=== PATIENT | female | born 1995 | race Two or more races ===

== ENCOUNTER 2018-01-29 19:46 | Emergency (ER) | payer MEDICAID ==
[~2018-01-29] VITALS: Ht 157.5 cm; Wt 85.9 kg
[~2018-01-29 19:46] MED LIST: GABA300C10 PO; PRED5TAB27 PO
[2018-01-29 19:53] VITALS: BP 119/77
[2018-01-29 21:32] LABS: HCG UR SG 1.009 (1.003-1.030)
== END 2018-01-29 22:24 | disposition home or self-care (01) ==
LOC: ED 21:00
DX: S16.1XXA Strain of muscle, fascia and tendon at neck level, initial encounter (principal); G43.909 Migraine, unspecified, not intractable, without status migrainosus; X58.XXXA Exposure to other specified factors, initial encounter; Y93.89 Activity, other specified; Y92.89 Other specified places as the place of occurrence of the external cause; Y99.8 Other external cause status
CPT/HCPCS: 81025; 99283

== ENCOUNTER 2018-02-03 16:06 | Emergency (ER) | payer MEDICAID ==
[~2018-02-03] VITALS: Ht 160 cm; Wt 81.1 kg
[2018-02-03 16:46] LABS: BASOPHILS # (AUTO) 0.02 x10^3/uL (0-0.1); BASOPHILS % (AUTO) 0 % (0-1); EOSINOPHILS # (AUTO) 0.03 x10^3/uL (0-0.4); EOSINOPHILS % (AUTO) 0 % (1-7); LYMPHOCYTES # (AUTO) 1.91 x10^3/uL (1-3.4); LYMPHOCYTES % (AUTO) 24 % (22-44); MD NO; MEAN CORPUSCULAR HEMOGLOBIN 31.4 pg (27.0-34.8); MEAN CORPUSCULAR HGB CONC 34.7 g/dL (32.4-35.8); MEAN CORPUSCULAR VOLUME 90.6 fL (80-100); MEAN PLATELET VOLUME 8.3 fL (7.4-10.4); MONOCYTES # (AUTO) 0.54 x10^3/uL (0.2-0.8); MONOCYTES % (AUTO) 7 % (2-9); NEUTROPHILS # (AUTO) 5.62 x10^3/uL (1.8-6.8); NEUTROPHILS % (AUTO) 69 % (42-75); PLATELET COUNT 292 x10^3/uL (130-400); RED CELL DISTRIBUTION WIDTH 13.5 % (9.6-15.2)
[2018-02-03 16:56] LABS: CULTURE INDICATED? YES; MICROSCOPIC INDICATED
[2018-02-03 17:00] LABS: ALANINE AMINOTRANSFERASE 29 U/L (12-78); ALBUMIN 4.4 g/dL (3.4-5.0); ANION GAP 10 mmol/L (5-15); CALCIUM 9.9 mg/dL (8.5-10.1); CHLORIDE 106 mmol/L (98-107); CREATININE 0.88 mg/dL (0.55-1.02)
[2018-02-03 17:04] LABS: ALKALINE PHOSPHATASE 66 U/L (45-117); BILIRUBIN,TOTAL 0.5 mg/dL (0.2-1.0); TOTAL PROTEIN 9.1 g/dL (6.4-8.2)
[2018-02-03 18:43] VITALS: BP 121/68
[2018-02-03 19:07] LABS: TROPONIN I < 0.015 ng/mL (0.000-0.045)
[2018-02-03] MEDS ORDERED: SODIUM CHLORIDE FLUSH 10ML SYR IVF ONE (20:00)
[2018-02-03] MEDS ORDERED: OMNIPAQUE 350 MG/ML, 100ML BOTTLE ONE (20:16)
== END 2018-02-03 21:16 | disposition home or self-care (01) ==
LOC: ED 21:10
DX: R10.12 Left upper quadrant pain (principal); R09.1 Pleurisy; R07.2 Precordial pain
CPT/HCPCS: 36415; 71045; 71275; 76700; 80053; 81001; 83690; 84484; 84703; 85025; 85379; 87086; 93005; 99285; Q9967

== ENCOUNTER → 2018-02-21 | Outpatient (CLI) | payer MEDICAID | END | disposition home or self-care (01) | LOC: RAD 16:30 | PROVIDERS: ATTEND Registered Nurse General Practice | DX: M23.51 Chronic instability of knee, right knee (principal); M25.561 Pain in right knee ==

== ENCOUNTER 2018-05-28 18:40 | Emergency (ER) | payer MEDICAID ==
[~2018-05-28] VITALS: Ht 160 cm; Wt 92.5 kg
[2018-05-28 19:46] LABS: BASOPHILS # (AUTO) 0.04 x10^3/uL (0-0.1); BASOPHILS % (AUTO) 1 % (0-1); EOSINOPHILS # (AUTO) 0.11 x10^3/uL (0-0.4); EOSINOPHILS % (AUTO) 2 % (1-7); LYMPHOCYTES # (AUTO) 2.31 x10^3/uL (1-3.4); LYMPHOCYTES % (AUTO) 35 % (22-44); MD NO; MEAN CORPUSCULAR HEMOGLOBIN 31.6 pg (27.0-34.8); MEAN CORPUSCULAR HGB CONC 34.8 g/dL (32.4-35.8); MEAN CORPUSCULAR VOLUME 90.7 fL (80-100); MEAN PLATELET VOLUME 7.6 fL (7.4-10.4); MONOCYTES # (AUTO) 0.54 x10^3/uL (0.2-0.8); MONOCYTES % (AUTO) 8 % (2-9); NEUTROPHILS # (AUTO) 3.69 x10^3/uL (1.8-6.8); NEUTROPHILS % (AUTO) 55 % (42-75); PLATELET COUNT 268 x10^3/uL (130-400); RED CELL DISTRIBUTION WIDTH 12.6 % (9.6-15.2)
[2018-05-28 19:54] VITALS: BP 106/61
[2018-05-28 19:56] LABS: ALBUMIN 3.6 g/dL (3.4-5.0); ANION GAP 7 mmol/L (5-15); CALCIUM 8.3 mg/dL (8.5-10.1); CHLORIDE 108 mmol/L (98-107)
[2018-05-28 20:15] LABS: MICROSCOPIC INDICATED
[2018-05-28 20:20] LABS: CULTURE INDICATED? YES
== END 2018-05-28 20:59 | disposition home or self-care (01) ==
LOC: ED 20:12
DX: N30.00 Acute cystitis without hematuria (principal); G43.909 Migraine, unspecified, not intractable, without status migrainosus; Z88.6 Allergy status to analgesic agent
CPT/HCPCS: 36415; 71046; 80048; 81001; 82040; 85025; 87086; 93005; 99285

== ENCOUNTER 2020-02-22 20:30 | Emergency (ER) | payer BC, MEDICAID ==
[~2020-02-22] VITALS: Ht 160 cm; Wt 96.1 kg
[~2020-02-22 20:30] MED LIST changes: +NORE1TAB85 PO; +[UNRECOGNIZED DRUG - REMARK] PO
[2020-02-22] MEDS ORDERED: ADENOSINE 6 MG/2 ML ONE (20:42)
[2020-02-22 20:56] LABS: BASOPHILS # (AUTO) 0.05 x10^3/uL (0-0.1); BASOPHILS % (AUTO) 1 % (0-1); EOSINOPHILS # (AUTO) 0.28 x10^3/uL (0-0.4); EOSINOPHILS % (AUTO) 3 % (1-7); LYMPHOCYTES # (AUTO) 4.18 x10^3/uL (1-3.4); LYMPHOCYTES % (AUTO) 37 % (22-44); MD NO; MEAN CORPUSCULAR HEMOGLOBIN 30.6 pg (27.0-34.8); MEAN CORPUSCULAR HGB CONC 34.1 g/dL (32.4-35.8); MEAN CORPUSCULAR VOLUME 89.8 fL (80-100); MEAN PLATELET VOLUME 7.9 fL (7.4-10.4); MONOCYTES # (AUTO) 0.79 x10^3/uL (0.2-0.8); MONOCYTES % (AUTO) 7 % (2-9); NEUTROPHILS % (AUTO) 53 % (42-75); PLATELET COUNT 346 x10^3/uL (130-400); RED BLOOD COUNT 4.78 x10^6/uL (3.82-5.3); RED CELL DISTRIBUTION WIDTH 13.9 % (9.6-15.2)
--- NOTE | 2020-02-22 20:59 | NUR ---
PT PRESENTS TO ER IN SVT RATE OF 233. PT IN GOWN AND IV ACCESS OBTAINED. 6MG ADENOSINE ADMIN WITH CONVERSION TO SINUS TACH. PT STATES RELIEF OF SYMPTOMS.
[2020-02-22] MEDS ORDERED: ADENOSINE 6 MG/2 ML IVPush ONE (21:00)
[2020-02-22 21:09] LABS: ANION GAP 9 mmol/L (5-15); CALCIUM 9.5 mg/dL (8.5-10.1); CHLORIDE 107 mmol/L (98-107); CREATININE 0.85 mg/dL (0.55-1.02)
[2020-02-22] MEDS ORDERED: POTASSIUM CHLORIDE 20 MEQ TAB.ER.PRT PO ONE (21:30)
[2020-02-22] MEDS ORDERED: ONDANSETRON 2MG/ML, 2ML ONE (21:37)
--- NOTE | 2020-02-22 21:42 | NUR ---
CARE ASSUMED OF PT. PT SINUS TACHY ON MONITOR. VSS. PT C/O NAUSEA. DISCUSSED WITH DR SANDS AND ORDER FOR CARLY RECEIVED. PT MEDICATED PER OCT.
[2020-02-22] MEDS ORDERED: ONDANSETRON 2MG/ML, 2ML IVPush ONE (22:00)
--- NOTE | 2020-02-22 22:25 | NUR ---
PT UP TO BR WITH STEADY GAIT. PT STATES SHE IS FEELING WELL AT THIS TIME. REMAINS SINUS TACHY ON MONITOR. CLARIFIED K+ ORDER WITH PROVIDER. 80MEQ IS TO BE ADMINISTERED. PT MEDICATED PER OCT. OK TO D/C HOME PER JUAN BOTELLO.
[2020-02-22] MEDS ORDERED: POTASSIUM CHLORIDE 20 MEQ TAB.ER.PRT ONE (22:27)
[2020-02-22 22:36] VITALS: BP 122/76
== END 2020-02-22 22:39 | disposition home or self-care (01) ==
LOC: ED 22:12
DX: I47.1 Supraventricular tachycardia (principal); R07.89 Other chest pain; J45.909 Unspecified asthma, uncomplicated
CPT/HCPCS: 36415; 80048; 82040; 83735; 84439; 84443; 84703; 85025; 93005; 96374; 99284; J0153; J2405; 96375

== ENCOUNTER 2020-09-18 16:53 | Emergency (ER) | payer BC, OTHER, MEDICAID ==
[~2020-09-18] VITALS: Ht 160 cm; Wt 96.0 kg
--- NOTE | 2020-09-18 17:42 | NUR ---
PT STATES THAT SHE HAS BEEN HAVING PALPATIONS OFF AND ON FOR A FEW WEEKS. HOOKED HER UP TO TELE AND GAVE CALL LIGHT TOLD HER TO NOTE THE TIME IF SHE HAS THE SENSATION AGAIN.
[2020-09-18 17:48] VITALS: BP 112/70
[2020-09-18 17:52] LABS: BASOPHILS % (AUTO) 0 % (0-1); EOSINOPHILS % (AUTO) 2 % (1-7); LYMPHOCYTES % (AUTO) 28 % (22-44); MEAN CORPUSCULAR HEMOGLOBIN 31.4 pg (27.0-34.8); MEAN CORPUSCULAR HGB CONC 34.9 g/dL (32.4-35.8); MEAN PLATELET VOLUME 7.2 fL (7.4-10.4); MONOCYTES % (AUTO) 8 % (2-9); NEUTROPHILS % (AUTO) 62 % (42-75); PLATELET COUNT 219 x10^3/uL (130-400); RED BLOOD COUNT 3.58 x10^6/uL (3.82-5.3); RED CELL DISTRIBUTION WIDTH 14.3 % (9.6-15.2)
[2020-09-18 17:53] LABS: MD NO
[2020-09-18 18:05] LABS: ALBUMIN 2.9 g/dL (3.4-5.0); ANION GAP 9 mmol/L (5-15); CALCIUM 8.6 mg/dL (8.5-10.1); CHLORIDE 108 mmol/L (98-107); CREATININE 0.44 mg/dL (0.55-1.02)
[2020-09-18 18:08] LABS: TROPONIN I < 0.015 ng/mL (0.000-0.045)
== END 2020-09-18 18:41 | disposition home or self-care (01) ==
LOC: ED 18:39
DX: O26.892 Other specified pregnancy related conditions, second trimester (principal); R00.2 Palpitations; R07.89 Other chest pain; G43.909 Migraine, unspecified, not intractable, without status migrainosus; Z3A.16 16 weeks gestation of pregnancy
CPT/HCPCS: 36415; 71045; 80048; 82040; 84484; 85025; 93005; 99285

== ENCOUNTER 2020-12-31 18:36 | Outpatient (CLI) | payer BC, MEDICAID ==
[~2020-12-31] VITALS: Ht 160 cm; Wt 98.6 kg
[2020-12-31] MEDS ORDERED: LORA10TA75 PO (19:02)
[2020-12-31] MEDS ORDERED: PREN1TAB10 PO (19:03)
== END 2020-12-31 19:30 | disposition home or self-care (01) ==
LOC: LDOP 18:36
PROVIDERS: ATTEND Student in an Organized Health Care Education/Training Program
DX: O26.893 Other specified pregnancy related conditions, third trimester (principal); R00.2 Palpitations; Z3A.31 31 weeks gestation of pregnancy
CPT/HCPCS: 59025

== ENCOUNTER 2020-12-31 19:47 | Emergency (ER) | payer BC, MEDICAID ==
[~2020-12-31] VITALS: Ht 160 cm; Wt 100.0 kg
[~2020-12-31 19:47] MED LIST changes: +LORA10TA75 PO; +PREN1TAB10 PO
--- NOTE | 2020-12-31 20:25 | NUR ---
PT SENT TO ED FROM L&D. PT IS 29 WEEKS AND HAS BEEN EXPERIENCNG HEART PALPITATIONS X3 DAYS. PT STATED THAT SHE HAS A HISTORY OF SVT AND IS SUPPOSED TO GET AN ABLATION AFTER DELIVERY. PT STATED THAT IT IS INTERMITTENT AND FEELS SOME CHEST TIGHTNESS WHEN SHE HAS PALPITATIONS. PT DENIES ANY SOB. PT STATED THAT FETUS WAS MONITORED ON L&D AND EVERYTHING LOOKS GOOD.
--- NOTE | 2020-12-31 20:52 | NUR ---
report recieved from sherlyn howe
[2020-12-31 22:00] LABS: BASOPHILS % (AUTO) 0 % (0-1); EOSINOPHILS % (AUTO) 2 % (1-7); LYMPHOCYTES % (AUTO) 26 % (22-44); MEAN CORPUSCULAR HEMOGLOBIN 32.2 pg (27.0-34.8); MEAN CORPUSCULAR HGB CONC 35.2 g/dL (32.4-35.8); MEAN PLATELET VOLUME 7.6 fL (7.4-10.4); MONOCYTES % (AUTO) 9 % (2-9); NEUTROPHILS % (AUTO) 62 % (42-75); PLATELET COUNT 192 x10^3/uL (130-400); RED BLOOD COUNT 3.54 x10^6/uL (3.82-5.3); RED CELL DISTRIBUTION WIDTH 15.2 % (9.6-15.2)
[2020-12-31 22:07] LABS: MD NO
[2020-12-31 22:14] LABS: ALBUMIN 2.6 g/dL (3.4-5.0); ANION GAP 8 mmol/L (5-15); CALCIUM 8.9 mg/dL (8.5-10.1); CHLORIDE 110 mmol/L (98-107); CREATININE 0.43 mg/dL (0.55-1.02)
[2020-12-31 22:24] LABS: FREE T4 (FREE THYROXINE) 0.82 ng/dL (0.76-1.46)
[2020-12-31] MEDS ORDERED: POTASSIUM CHLORIDE 20 MEQ PACKET PO ONE (23:00)
[2020-12-31] MEDS ORDERED: POTASSIUM CHLORIDE 20 MEQ TAB.ER.PRT ONE (23:04)
--- NOTE | 2020-12-31 23:26 | NUR ---
RECEIVED REPORT FROM ELLIE KNOTT TO ASSUME CARE OF PT. AT THIS TIME. PT. CHART UP FOR RECHECK BY ERP AT THIS TIME.
[2020-12-31 23:44] VITALS: BP 143/62
== END 2020-12-31 23:45 | disposition home or self-care (01) ==
LOC: ED 21:07
DX: O26.892 Other specified pregnancy related conditions, second trimester (principal); R00.2 Palpitations; R00.0 Tachycardia, unspecified; J45.909 Unspecified asthma, uncomplicated; G43.909 Migraine, unspecified, not intractable, without status migrainosus; Z3A.20 20 weeks gestation of pregnancy
CPT/HCPCS: 36415; 80048; 82040; 84439; 84443; 85025; 93005; 99284

== ENCOUNTER 2021-02-05 16:17 | Outpatient (CLI) | payer BC, MEDICAID ==
[~2021-02-05] VITALS: Ht 160 cm; Wt 103.2 kg
[2021-02-05 16:42] VITALS: BP 121/68
== END 2021-02-05 17:45 | disposition home or self-care (01) ==
LOC: LDOP 16:17
PROVIDERS: ATTEND Student in an Organized Health Care Education/Training Program
DX: O36.8130 Decreased fetal movements, third trimester, not applicable or unspecified (principal); Z3A.36 36 weeks gestation of pregnancy
CPT/HCPCS: 59025; 89060; Q0114

== ENCOUNTER 2021-02-16 12:12 | Outpatient (CLI) | payer BC, MEDICAID ==
[~2021-02-16] VITALS: Ht 160 cm; Wt 103.8 kg
[2021-02-16 12:30] VITALS: BP 110/65
== END 2021-02-16 15:29 | disposition home or self-care (01) ==
LOC: LDOP 12:12
PROVIDERS: ATTEND Student in an Organized Health Care Education/Training Program
DX: O26.893 Other specified pregnancy related conditions, third trimester (principal); R10.9 Unspecified abdominal pain; Z3A.37 37 weeks gestation of pregnancy
CPT/HCPCS: 59025

== ENCOUNTER 2021-02-23 20:41 | Outpatient (CLI) | payer BC, MEDICAID ==
[~2021-02-23] VITALS: Ht 160 cm; Wt 101.0 kg
== END 2021-02-23 21:22 | disposition home or self-care (01) ==
LOC: LDOP 20:41
PROVIDERS: ATTEND Student in an Organized Health Care Education/Training Program
DX: O62.9 Abnormality of forces of labor, unspecified (principal); O26.893 Other specified pregnancy related conditions, third trimester; Z3A.38 38 weeks gestation of pregnancy
CPT/HCPCS: 59025

== ENCOUNTER 2021-02-25 09:45 | Inpatient (IN) | payer BC, MEDICAID ==
[~2021-02-25] VITALS: Ht 160 cm; Wt 102.7 kg
[2021-02-25] MEDS ORDERED: TERBUTALINE 1 MG/ML, 1ML SQ PRN (10:30)
[2021-02-25] MEDS ORDERED: TERBUTALINE 1 MG/ML, 1ML IVPush PRN (10:30)
[2021-02-25] MEDS ORDERED: PLEASE ENTER HEIGHT AND WEIGHT MC SCH (10:30)
[2021-02-25] MEDS ORDERED: OXYTOCIN 30U/ 0.9% NaCL 500ML 500 ML IV ONE (10:30)
[2021-02-25] MEDS ORDERED: PENICILLIN GK 5,000,000 UNITS in DEXTROSE 5% 100 ML IVPB ONE (10:30)
[2021-02-25 10:44] LABS: BASOPHILS % (AUTO) 0 % (0-1); EOSINOPHILS % (AUTO) 2 % (1-7); LYMPHOCYTES % (AUTO) 23 % (22-44); MEAN CORPUSCULAR HEMOGLOBIN 31.6 pg (27.0-34.8); MEAN CORPUSCULAR HGB CONC 34.2 g/dL (32.4-35.8); MEAN PLATELET VOLUME 8.1 fL (7.4-10.4); MONOCYTES % (AUTO) 8 % (2-9); NEUTROPHILS % (AUTO) 67 % (42-75); PLATELET COUNT 183 x10^3/uL (130-400); RED BLOOD COUNT 3.67 x10^6/uL (3.82-5.3); RED CELL DISTRIBUTION WIDTH 15.7 % (9.6-15.2)
[2021-02-25] MEDS ORDERED: LIDOCAINE 1%, 20ML ONE (11:03)
[2021-02-25] MEDS ORDERED: MISOPROSTOL 200 MCG TABLET ONE (11:03)
[2021-02-25] MEDS ORDERED: NEWBORN KIT ONE (11:03)
[2021-02-25] MEDS ORDERED: OXYTOCIN 30U/ 0.9% NaCL 500ML 500 ML ONE (11:03)
[2021-02-25] MEDS ORDERED: FENTANYL/BUPIV./NS/PF 250 ML EPIDCONT ONE (14:45)
[2021-02-25] MEDS: PENICILLIN GK 2,500,000 UNITS in DEXTROSE 5% 100 ML IVPB SCH ×2 (15:11→18:54)
[2021-02-25] MEDS ORDERED: NALOXONE 0.4 MG/ML, 1ML IVPush PRN (15:30)
[2021-02-25] MEDS ORDERED: LACTATED RINGERS 1,000 ML IV SCH (15:30)
[2021-02-25] MEDS ORDERED: FENTANYL/BUPIV./NS/PF 250 ML EPIDCONT SCH (15:30)
[2021-02-25] MEDS ORDERED: EPHEDRINE 50 MG/ML, 1ML IVPush PRN (15:30)
[2021-02-25] MEDS ORDERED: LACTATED RINGERS 1,000 ML IVBOLUS PRN (15:30)
[2021-02-25] MEDS ORDERED: BISACODYL 10 MG SUPP PR PRN (22:00)
[2021-02-25] MEDS ORDERED: CALCIUM CARBONATE 500 MG TAB.CHEW PO PRN (22:00)
[2021-02-25] MEDS: OXYTOCIN 30U/ 0.9% NaCL 500ML 500 ML IV SCH (22:00)
[2021-02-25] MEDS ORDERED: GLYCERIN ADULT SUPP PR PRN (22:00)
[2021-02-25] MEDS ORDERED: ONDANSETRON 2MG/ML, 2ML IV PRN (22:00)
[2021-02-25] MEDS ORDERED: CARBOPROST TROMETHAMINE 250 MCG/ML, 1ML IM PRN (22:00)
[2021-02-25] MEDS ORDERED: SIMETHICONE 80 MG CHEW TAB PO PRN (22:00)
[2021-02-25] MEDS ORDERED: MISOPROSTOL 200 MCG TABLET PR PRN (22:00)
[2021-02-25] MEDS ORDERED: METHYLERGONOVINE 0.2 MG/ML IM PRN (22:00)
[2021-02-26 00:50] VITALS: BP 118/75
[2021-02-26] MEDS: OXYcodone/APAP 5/325MG TABLET PO PRN ×4 (01:44→21:51)
[2021-02-26] MEDS: IBUPROFEN 600 MG TABLET PO PRN ×3 (01:44→21:51)
[2021-02-26 04:30] VITALS: BP 102/64
[2021-02-26 05:32] LABS: BASOPHILS % (AUTO) 0 % (0-1); EOSINOPHILS % (AUTO) 1 % (1-7); LYMPHOCYTES % (AUTO) 16 % (22-44); MEAN CORPUSCULAR HEMOGLOBIN 32.3 pg (27.0-34.8); MEAN PLATELET VOLUME 7.8 fL (7.4-10.4); MONOCYTES % (AUTO) 7 % (2-9); NEUTROPHILS % (AUTO) 76 % (42-75); PLATELET COUNT 180 x10^3/uL (130-400); RED BLOOD COUNT 3.59 x10^6/uL (3.82-5.3); RED CELL DISTRIBUTION WIDTH 15.7 % (9.6-15.2)
[2021-02-26 08:00] VITALS: BP 111/70
[2021-02-26] MEDS: OXYTOCIN 30U/ 0.9% NaCL 500ML 500 ML IV SCH ×2 (08:00→18:00)
[2021-02-26] MEDS: PRENATAL VIT/IRON/FA 1 EACH TABLET PO SCH (08:16)
[2021-02-26] MEDS: DOCUSATE 100 MG CAPSULE PO PRN ×2 (08:16→21:51)
[2021-02-26] MEDS ORDERED: MEASLES,MUMPS&RUBELLA VACC/PF 0.5 ML SQ-VACC ONE ×2 (11:47→12:00)
[2021-02-26] MEDS: PLEASE ENTER HEIGHT AND WEIGHT MC SCH ×8 (12:00→19:00)
[2021-02-26] MEDS ORDERED: PLEASE ENTER HEIGHT AND WEIGHT MC SCH (12:00)
[2021-02-26 12:30] VITALS: BP 120/80
[2021-02-26 16:00] VITALS: BP 119/79
[2021-02-26 20:10] VITALS: BP 113/78
[2021-02-27] MEDS: OXYTOCIN 30U/ 0.9% NaCL 500ML 500 ML IV SCH (04:00)
[2021-02-27] MEDS: OXYcodone/APAP 5/325MG TABLET PO PRN (06:32)
[2021-02-27] MEDS: IBUPROFEN 600 MG TABLET PO PRN (06:32)
[2021-02-27 07:30] VITALS: BP 117/75
[2021-02-27] MEDS ORDERED: IBUP-1222 PO (07:51)
[2021-02-27] MEDS: PRENATAL VIT/IRON/FA 1 EACH TABLET PO SCH (08:20)
[2021-02-27] MEDS: DOCUSATE 100 MG CAPSULE PO PRN (08:20)
== END 2021-02-27 10:52 | disposition home or self-care (01) | DRG 807 ==
LOC: LDIP 09:45 → 2NW 02-26 00:30
PROVIDERS: ADMIT Student in an Organized Health Care Education/Training Program; ATTEND Student in an Organized Health Care Education/Training Program
PROC: 10E0XZZ Delivery of Products of Conception, External Approach (ICD-10-PCS; principal; 2021-02-25)
PROC: 10907ZC Drainage of Amniotic Fluid, Therapeutic from Products of Conception, Via Natural or Artificial Opening (ICD-10-PCS; 2021-02-25)
PROC: 3E033VJ Introduction of Other Hormone into Peripheral Vein, Percutaneous Approach (ICD-10-PCS; 2021-02-25)
PROC: 10H073Z Insertion of Monitoring Electrode into Products of Conception, Via Natural or Artificial Opening (ICD-10-PCS; 2021-02-25)
PROC: 3E0R3BZ Introduction of Anesthetic Agent into Spinal Canal, Percutaneous Approach (ICD-10-PCS; 2021-02-25)
PROC: 00HU33Z Insertion of Infusion Device into Spinal Canal, Percutaneous Approach (ICD-10-PCS; 2021-02-25)
PROC: 3E0134Z Introduction of Serum, Toxoid and Vaccine into Subcutaneous Tissue, Percutaneous Approach (ICD-10-PCS; 2021-02-26)
DX: O99.824 Streptococcus B carrier state complicating childbirth (principal); Z37.0 Single live birth; Z3A.39 39 weeks gestation of pregnancy; G43.109 Migraine with aura, not intractable, without status migrainosus; O99.354 Diseases of the nervous system complicating childbirth; Z20.822 Contact with and (suspected) exposure to COVID-19; Z23 Encounter for immunization
CPT/HCPCS: 36415; 85025; 86592; 86850; 86900; 87635; 90707; G0378; J2540; J2590